=== PATIENT | male | born 1960 | race Two or more races ===

== ENCOUNTER 2017-04-13 17:47 | Inpatient (IN) | payer SELFPAY ==
[~2017-04-13] VITALS: Ht 160 cm; Wt 70.3 kg
[2017-04-13] MEDS ORDERED: cloNIDine HCL 0.1 MG TAB PO ONE (18:15)
[2017-04-13 18:39] LABS: Basophils # (auto) 0 uL; Basophils % (auto) 0.4 % (0.0-2.0); CONDITION Y; Eosinophils # (auto) 0.1 uL; Eosinophils % (auto) 0.7 % (0.0-7.0); Hematocrit 47.3 % (41.0-53.0); Hemoglobin 16.2 g/dL (13.5-17.5); Lymphocytes # (auto) 2.4 uL; Lymphocytes % (auto) 26.7 % (10.0-50.0); Mean Corpuscular Hemoglobin 30.4 pg (28.0-32.0); Mean Corpuscular Hgb Conc. 34.2 g/dL (32.0-36.0); Mean Corpuscular Volume 88.8 fL (80.0-100.0); Mean Platelet Volume 9.6 fL (7.4-10.4); Monocytes # (auto) 0.6 uL; Monocytes % (auto) 6.3 % (0.0-12.0); Neutrophils # (auto) 5.8 uL; Neutrophils % (auto) 65.9 % (37.0-80.0); Platelet Count (auto) 238 10^3/uL (140-450); Red Cell Distribution Width 12.4 % (11.6-16.0); White Blood Cell 8.9 10^3/uL (4.4-10.8)
[2017-04-13 19:09] LABS: Albumin 3.5 g/dL (3.4-5.0); Alkaline Phosphatase 81 U/L (45-117); Anion Gap 11 (5-15); Aspartate Aminotransferase 78 U/L (15-37); BUN/Creatinine Ratio 16.5; Bilirubin, Total 0.8 mg/dL (0.2-1.0); Blood Urea Nitrogen 18 mg/dL (7-18); Calcium 8.9 mg/dL (8.5-10.1); Carbon Dioxide 27 mmol/L (21-32); Chloride 93 mmol/L (98-107); GFR African American 90 mL/min; GFR Non-African American 74 mL/min; Sodium 131 mmol/L (136-145); Total Protein 7.9 g/dL (6.4-8.2)
[2017-04-13 19:13] LABS: Glucose 406 mg/dL (74-106)
[2017-04-14] MEDS ORDERED: InsuLIN REG 1unit/0.01ml Soln (100units/ml) IV ONE (01:45)
[2017-04-14] MEDS: SODIUM CHLORIDE 0.9% 1,000 ML IV ONE ×2 (01:45→02:25)
[2017-04-14 02:21] LABS: Base Excess 1.4 mmol/L (-2.0-2.0); Blood 02Sat 94.6 % (96-100); Blood COHb 0.9 % (0.5-1.5); Blood MetHb 0.3 % (0.0-1.5); HHb 5.3 % (0.0-5.0); MODE ROOM AIR; O2Hb 93.5 % (94.0-97.0); PCO2 41.2 mmHg (35.0-45.0); PCO2(T) 39.4 mmHg (35.0-45.0); PO2 78.3 mmHg (80.0-100.0); PO2(T) 73.3 mmHg (80.0-100.0); Sample Type Arterial; pH 7.418 (7.350-7.450)
[2017-04-14 03:00] LABS: Urine Bilirubin Negative (Negative); Urine Blood Negative /uL (Negative); Urine Color Yellow (Yellow); Urine Glucose 4+ mg/dL (Normal); Urine Ketone 2+ (Negative); Urine Nitrite Negative (Negative); Urine RBC <1 /hpf (0 - 3); Urine Squamous Epithelial Cell FEW /hpf (<5); Urine Urobilinogen Normal (Negative); Urine pH 5.5 (5.0-8.0)
[2017-04-14] MEDS ORDERED: InsuLIN R (HUMAN) 100 UNITS in SODIUM CHL 0.9% 99 ML IV SCH (03:33)
[2017-04-14] MEDS ORDERED: DEXTROSE (50%) 50ML SYRG IV PRN ×2 (03:45→06:15)
[2017-04-14 03:52] LABS: Allen Test Yes; Base Excess -1.8 mmol/L (-2.0-2.0); Blood 02Sat 94.4 % (96-100); Blood COHb 0.8 % (0.5-1.5); Blood MetHb 0.2 % (0.0-1.5); HCO3 22.8 mmol/L (22-26.0); HHb 5.5 % (0.0-5.0); MODE ROOM AIR; O2Hb 93.5 % (94.0-97.0); PCO2 38.5 mmHg (35.0-45.0); PCO2(T) 38.5 mmHg (35.0-45.0); PO2 76.4 mmHg (80.0-100.0); PO2(T) 76.4 mmHg (80.0-100.0); Sample Type Arterial; pH 7.391 (7.350-7.450)
[2017-04-14] MEDS: ACCU-CHEK COMFORT CURVE STRIP VI SCH ×4 (04:00→05:59)
[2017-04-14 04:42] LABS: Phosphorus 3.4 mg/dL (2.5-4.90)
[2017-04-14 05:06] LABS: Calcium 7.9 mg/dL (8.5-10.1); Potassium 3.6 mmol/L (3.5-5.1)
[2017-04-14] MEDS ORDERED: InsuLIN REG 1unit/0.01ml Soln (100units/ml) ONE (05:07)
[2017-04-14] MEDS: SODIUM CHLORIDE 0.9% 1,000 ML IV SCH ×2 (05:26→05:35)
[2017-04-14] MEDS ORDERED: SODIUM CHLORIDE 0.9% 1,000 ML IV SCH ×3 (06:08→09:33)
[2017-04-14] MEDS ORDERED: TEMAZEPAM 15 MG CAP PO PRN (06:15)
[2017-04-14] MEDS ORDERED: NITROGLYCERIN 0.4 MG SL TAB SL PRN (06:15)
[2017-04-14] MEDS ORDERED: ONDANSETRON HCL 4 MG/2 ML VIAL IV PRN (06:15)
[2017-04-14] MEDS ORDERED: HYDROcodone-ACET 5/325MG TAB PO PRN (06:15)
[2017-04-14] MEDS ORDERED: ACETAMINOPHEN 325 MG TAB PO PRN (06:15)
[2017-04-14] MEDS ORDERED: MORPHINE SULF INJ 2 MG/ML SYRINGE 1ML IV PRN (06:15)
[2017-04-14] MEDS ORDERED: ACCU-CHEK COMFORT CURVE STRIP VI SCH (08:00)
[2017-04-14] MEDS ORDERED: InsuLIN REG 1unit/0.01ml Soln (100units/ml) SC SCH (08:00)
[2017-04-14 09:00] VITALS: BP 144/80
[2017-04-14 09:45] VITALS: BP 145/78
[2017-04-14] MEDS ORDERED: ENOXAPARIN SOD 40 MG/0.4 ML SYRINGE SC SCH (10:00)
[2017-04-14] MEDS ORDERED: FAMOTIDINE 20 MG TAB PO SCH (10:00)
[2017-04-14] MEDS ORDERED: LISINOPRIL 5 MG TAB PO SCH (10:00)
== END 2017-04-14 11:01 | disposition home or self-care (01) | DRG 639 ==
LOC: ER 17:53 → TELE 17:54
PROVIDERS: ADMIT Nurse Practitioner; ATTEND Nurse Practitioner
DX: E10.10 Type 1 diabetes mellitus with ketoacidosis without coma (principal); F17.210 Nicotine dependence, cigarettes, uncomplicated; I10 Essential (primary) hypertension; E86.0 Dehydration; Z79.4 Long term (current) use of insulin; Z82.49 Family history of ischemic heart disease and other diseases of the circulatory system; Z83.3 Family history of diabetes mellitus
CPT/HCPCS: 36415; 36600; 80048; 80053; 80307; 81001; 82010; 82805; 82962; 83735; 83930; 84100; 84484; 85025; 93005; 96361; 96374; J1815

== ENCOUNTER 2017-04-19 09:19 | Inpatient (IN) | payer MEDICAID ==
[~2017-04-19] VITALS: Ht 160 cm; Wt 56.0 kg
[2017-04-19] MEDS ORDERED: SODIUM CHLORIDE 0.9% 500 ML IVB ONE (09:46)
[2017-04-19 09:56] LABS: Basophils # (auto) 0 uL; Basophils % (auto) 0.6 % (0.0-2.0); CONDITION Y; Eosinophils # (auto) 0.2 uL; Hematocrit 46.4 % (41.0-53.0); Hemoglobin 15.9 g/dL (13.5-17.5); Lymphocytes # (auto) 2.8 uL; Lymphocytes % (auto) 34.7 % (10.0-50.0); Mean Corpuscular Hemoglobin 30.8 pg (28.0-32.0); Mean Corpuscular Hgb Conc. 34.3 g/dL (32.0-36.0); Mean Corpuscular Volume 89.8 fL (80.0-100.0); Mean Platelet Volume 9.7 fL (7.4-10.4); Monocytes # (auto) 0.5 uL; Neutrophils # (auto) 4.6 uL; Neutrophils % (auto) 56.7 % (37.0-80.0); Platelet Count (auto) 197 10^3/uL (140-450); Red Cell Distribution Width 12.7 % (11.6-16.0); White Blood Cell 8.1 10^3/uL (4.4-10.8)
[2017-04-19 10:28] LABS: Albumin 3.4 g/dL (3.4-5.0); Alkaline Phosphatase 77 U/L (45-117); Anion Gap 9 (5-15); Aspartate Aminotransferase 76 U/L (15-37); BUN/Creatinine Ratio 19.5; Bilirubin, Total 0.4 mg/dL (0.2-1.0); Blood Urea Nitrogen 23 mg/dL (7-18); Calcium 8.5 mg/dL (8.5-10.1); Carbon Dioxide 27 mmol/L (21-32); Chloride 101 mmol/L (98-107); GFR African American 82 mL/min; GFR Non-African American 68 mL/min; Glucose 294 mg/dL (74-106); Magnesium 2.1 mg/dL (1.6-2.6); Potassium 4.1 mmol/L (3.5-5.1); Sodium 137 mmol/L (136-145); Total Protein 7.8 g/dL (6.4-8.2)
[2017-04-19] MEDS ORDERED: LORazepam 0.5 MG TAB PO PRN (10:30)
[2017-04-19] MEDS ORDERED: NITROGLYCERIN 0.4 MG SL TAB SL PRN (10:30)
[2017-04-19] MEDS ORDERED: LACTULOSE 20Gm/30ML SOLN PO PRN (10:30)
[2017-04-19] MEDS ORDERED: DEXTROSE (50%) 50ML SYRG IV PRN (10:30)
[2017-04-19] MEDS ORDERED: MORPHINE SULF INJ 2 MG/ML SYRINGE 1ML IV PRN ×2 (10:30)
[2017-04-19] MEDS ORDERED: ONDANSETRON HCL 4 MG/2 ML VIAL IV PRN (10:30)
[2017-04-19] MEDS ORDERED: HYDROcodone-ACET 5/325MG TAB PO PRN (10:30)
[2017-04-19] MEDS ORDERED: TEMAZEPAM 15 MG CAP PO PRN (10:30)
[2017-04-19] MEDS ORDERED: ACETAMINOPHEN 500 MG TAB PO PRN (10:30)
[2017-04-19] MEDS ORDERED: LORazepam 2MG/ML-1ML VIAL IV ONE (10:45)
[2017-04-19 10:58] LABS: Urine RBC None Seen /hpf (0 - 3)
[2017-04-19] MEDS: SODIUM CHLORIDE 0.9% 1,000 ML IV SCH ×2 (11:01→23:43)
[2017-04-19 11:02] LABS: Urine Bilirubin Negative (Negative); Urine Blood Negative /uL (Negative); Urine Color Yellow (Yellow); Urine Ketone Negative (Negative); Urine Mucus FEW (None Seen); Urine Nitrite Negative (Negative); Urine Urobilinogen Normal (Negative); Urine pH 5.5 (5.0-8.0)
[2017-04-19] MEDS: ASPirin 81 mg TAB PO SCH (11:02)
[2017-04-19 11:03] LABS: Urine Glucose 4+ mg/dL (Normal)
[2017-04-19 11:04] LABS: Amylase 73 U/L (25-115)
[2017-04-19 11:21] LABS: Cholesterol 190 mg/dL (< 200); HDL Cholesterol 54 mg/dL (40-59); LDL Cholesterol 117 mg/dL (< 100); Temperature: 22.4 C (20.0-25.0); Triglycerides 137 mg/dL (< 150)
[2017-04-19] MEDS: ACCU-CHEK COMFORT CURVE STRIP VI SCH ×3 (11:26→22:14)
[2017-04-19] MEDS: InsuLIN REG 1unit/0.01ml Soln (100units/ml) SC SCH ×3 (11:31→22:15)
[2017-04-19 20:00] VITALS: BP 168/101
[2017-04-19] MEDS ORDERED: ATORVASTATIN 20 MG TAB PO SCH (22:00)
[2017-04-19] MEDS: cloNIDine HCL 0.1 MG TAB PO PRN (22:14)
[2017-04-20] MEDS ORDERED: cloNIDine HCL 0.1 MG TAB PO ONE (00:15)
[2017-04-20 01:20] VITALS: BP 127/78
[2017-04-20] MEDS ORDERED: INSREG3 SUBCUT (02:37)
[2017-04-20 05:02] LABS: Basophils # (auto) 0.1 uL; Basophils % (auto) 0.7 % (0.0-2.0); CONDITION Y; Eosinophils # (auto) 0.2 uL; Eosinophils % (auto) 2.5 % (0.0-7.0); Hematocrit 42.8 % (41.0-53.0); Hemoglobin 14.5 g/dL (13.5-17.5); Lymphocytes # (auto) 2.7 uL; Lymphocytes % (auto) 36.7 % (10.0-50.0); Mean Corpuscular Hemoglobin 30.5 pg (28.0-32.0); Mean Corpuscular Volume 89.6 fL (80.0-100.0); Mean Platelet Volume 9.9 fL (7.4-10.4); Monocytes # (auto) 0.6 uL; Monocytes % (auto) 7.6 % (0.0-12.0); Neutrophils # (auto) 3.9 uL; Neutrophils % (auto) 52.5 % (37.0-80.0); Platelet Count (auto) 212 10^3/uL (140-450); Red Cell Distribution Width 12.5 % (11.6-16.0); White Blood Cell 7.5 10^3/uL (4.4-10.8)
[2017-04-20 05:04] VITALS: BP 109/65
[2017-04-20 05:17] LABS: INR 0.95 (0.9-1.15); Partial Thromboplastin Time 26.8 sec (22.64-33.71); Prothrombin Time 10.3 sec (9.37-12.3)
[2017-04-20 05:26] LABS: Albumin 2.9 g/dL (3.4-5.0); Calcium 7.9 mg/dL (8.5-10.1)
[2017-04-20 05:29] LABS: BUN/Creatinine Ratio 24.1
[2017-04-20 05:32] LABS: Bilirubin, Total 0.4 mg/dL (0.2-1.0); Total Protein 6.7 g/dL (6.4-8.2)
[2017-04-20] MEDS: ACCU-CHEK COMFORT CURVE STRIP VI SCH ×4 (06:31→21:31)
[2017-04-20] MEDS: InsuLIN REG 1unit/0.01ml Soln (100units/ml) SC SCH ×4 (06:31→21:32)
[2017-04-20] MEDS ORDERED: INSRTEST IV (07:08)
[2017-04-20 09:00] VITALS: BP 114/74
[2017-04-20] MEDS: ASPirin 81 mg TAB PO SCH (10:45)
[2017-04-20] MEDS: SODIUM CHLORIDE 0.9% 1,000 ML IV SCH (12:00)
[2017-04-20 13:00] VITALS: BP 134/79
[2017-04-20 18:59] VITALS: BP 154/72
[2017-04-20] MEDS: ATORVASTATIN 20 MG TAB PO SCH (21:31)
[2017-04-21] MEDS: SODIUM CHLORIDE 0.9% 1,000 ML IV SCH ×2 (00:31→13:00)
[2017-04-21 01:00] VITALS: BP 174/84
[2017-04-21] MEDS: cloNIDine HCL 0.1 MG TAB PO PRN ×2 (03:47→16:44)
[2017-04-21 05:00] VITALS: BP 124/58
[2017-04-21] MEDS: ACCU-CHEK COMFORT CURVE STRIP VI SCH ×4 (06:36→21:44)
[2017-04-21] MEDS: InsuLIN REG 1unit/0.01ml Soln (100units/ml) SC SCH ×4 (06:37→21:43)
[2017-04-21] MEDS ORDERED: INSUINJ2 SC (06:48)
[2017-04-21 09:00] VITALS: BP 142/81
[2017-04-21] MEDS: ASPirin 81 mg TAB PO SCH (10:31)
[2017-04-21 13:00] VITALS: BP 164/84
[2017-04-21 17:00] VITALS: BP 149/78
[2017-04-21] MEDS: ATORVASTATIN 20 MG TAB PO SCH (21:43)
[2017-04-21 22:00] VITALS: BP 156/77
[2017-04-22] VITALS (8 sets, daily range): BP systolic 146–164; BP diastolic 77–95
[2017-04-22] MEDS: SODIUM CHLORIDE 0.9% 1,000 ML IV SCH ×2 (01:10→14:20)
[2017-04-22] MEDS: ACCU-CHEK COMFORT CURVE STRIP VI SCH ×3 (06:15→17:21)
[2017-04-22] MEDS: InsuLIN REG 1unit/0.01ml Soln (100units/ml) SC SCH ×3 (06:15→17:22)
[2017-04-22] MEDS: ASPirin 81 mg TAB PO SCH (09:33)
[2017-04-22] MEDS ORDERED: ASPI81CH43 PO (11:48)
[2017-04-22] MEDS ORDERED: ATOR20TA50 PO (11:48)
[2017-04-22 14:27] LABS: Hepatitis B Surface Antibody Positive
== END 2017-04-22 19:15 | disposition home or self-care (01) | DRG 45 ==
LOC: ER 09:23 → TELE 09:24 → TELE-E-ADS 14:00 → TELE-WESTW 18:43
PROVIDERS: ADMIT Nurse Practitioner Family; ATTEND Nurse Practitioner Acute Care
PROC: 5A09357 Assistance with Respiratory Ventilation, Less than 24 Consecutive Hours, Continuous Positive Airway Pressure (ICD-10-PCS; principal; 2017-04-21)
DX: I63.9 Cerebral infarction, unspecified (principal); E11.65 Type 2 diabetes mellitus with hyperglycemia; I10 Essential (primary) hypertension; E78.5 Hyperlipidemia, unspecified; F17.210 Nicotine dependence, cigarettes, uncomplicated; Z79.82 Long term (current) use of aspirin; Z79.899 Other long term (current) drug therapy; Z82.49 Family history of ischemic heart disease and other diseases of the circulatory system; Z83.3 Family history of diabetes mellitus
CPT/HCPCS: 36415; 70450; 70551; 71010; 76705; 80053; 80061; 81001; 82150; 82607; 82746; 82962; 83690; 83735; 84443; 84484; 85025; 85610; 85652; 85730; 86704; 86706; 86708; 86803; 87340; 93005; 93306; 93886; 94660; 94761; 96361; 96374; 97116; 97163; 97530; J1815